=== PATIENT | female | born 1985 | race Caucasian/White ===

== ENCOUNTER 2017-05-04 19:49 | Emergency (ER) | payer OTHER ==
[~2017-05-04 19:49] MED LIST: ACID CONTROL20 MG; ALBUTEROL MININEB NEB; ALBUTEROL17 GM INH; AMOXIL400 MG/51 PO; COMBIVENT INHALER INH; COMBIVENT14.7 GM INH; FLEXERIL10 MG PO; HYDROXYZINE HCL10 MG PO; KLONOPIN PO; MOTRIN600 MG PO; OMEPRAZOLE40 MG PO; PRILOSEC40 MG PO; ULTRAM PO; WELLBUTRIN PO; ZITHROMAX PO
== END 2017-05-04 22:55 | disposition home or self-care (01) ==
LOC: CED 19:49 → CFTX 19:49
DX: K08.89 Other specified disorders of teeth and supporting structures (principal); H92.02 Otalgia, left ear; R03.0 Elevated blood-pressure reading, without diagnosis of hypertension; I10 Essential (primary) hypertension; F41.9 Anxiety disorder, unspecified; J45.909 Unspecified asthma, uncomplicated; Z79.899 Other long term (current) drug therapy
CPT/HCPCS: 99283

== ENCOUNTER 2017-05-09 02:43 | Emergency (ER) | payer OTHER | END 2017-05-09 03:30 | disposition home or self-care (01) | LOC: CED 02:43 | DX: J70.5 Respiratory conditions due to smoke inhalation (principal); J45.909 Unspecified asthma, uncomplicated; F41.9 Anxiety disorder, unspecified; Z88.8 Allergy status to other drugs, medicaments and biological substances; Z88.6 Allergy status to analgesic agent | CPT/HCPCS: 99283 ==